=== PATIENT | female | born 1970 | race Caucasian/White ===

== ENCOUNTER 2018-01-10 16:35 | Emergency (ER) | payer OTHER ==
[~2018-01-10] VITALS: Ht 165.1 cm; Wt 57.6 kg
[2018-01-10 16:50] VITALS: BP 119/75
[2018-01-10 17:32] VITALS: BP 119/75
--- NOTE | 2018-01-10 20:03 | Emergency Room Report ---
History of Present Illness General Chief Complaint: General Complaint Source: Patient Present Illness HPI 57-year-old female,begin past history, presenting with accidental ingestion. 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 This occurred more than 4 hours prior to arrival. Denies any symptoms. No headache no blurry vision no feeling of intoxication. No nausea vomiting. No other complaints Allergies: Coded Allergies: No Known Allergies (Unverified , 01/10/18) Patient History Past Medical History: see triage record Past Surgical History: none Pertinent Family History: none Last Menstrual Period: 12/27/17 Reviewed Nursing Documentation: PMH: Agreed; PSxH: Agreed Nursing Documentation-PMH Past Medical History: No Stated History Review of Systems All Other Systems: negative except mentioned in HPI Physical Exam Vital Signs Date Time Temp Pulse Resp B/P (MAP) Pulse Ox O2 Delivery O2 Flow Rate FiO2 01/10/18 16:38 97.3 64 18 119/75 97 Room Air 97.3 Sp02 EP Interpretation: reviewed, normal General Appearance: normal inspection, well appearing, no apparent distress, alert, GCS 15, non-toxic Head: normocephalic, atraumatic Eyes: bilateral eye normal inspection, bilateral eye PERRL, bilateral eye EOMI ENT: normal ENT inspection, normal pharynx, normal voice, moist mucus membranes Neck: normal inspection, full range of motion, supple Respiratory: normal inspection, lungs clear, normal breath sounds, no respiratory distress, no retraction, no wheezing, speaking full sentences, chest symmetrical Cardiovascular #1: normal inspection, regular rate, rhythm, normal capillary refill Cardiovascular #2: 2+ radial (R), 2+ radial (L) Gastrointestinal: normal inspection, non tender, soft, non-distended, no guarding Musculoskeletal: normal inspection, back normal, normal range of motion, non- tender Neurologic: normal inspection, alert, oriented x3, responsive, motor strength/ tone normal, sensory intact, normal gait, speech normal Psychiatric: normal inspection, judgement/insight normal, memory normal Skin: normal inspection, normal color, no rash, warm/dry, well hydrated, normal turgor Medical Decision Making Diagnostic Impression: Primary Impression: Accidental drug ingestion ER Course 57-year-old female with accidental methanol ingestion DDX: Accidental methanol ingestion however very small/negligible amount Plan: None, observe patient ER course: Patient has remained stable during ED stay. Asymptomatic Disposition: Patient is to be discharged to home. Patient is instructed to follow up with their primary care doctor within 5 days. Please note that this Emergency Department Report was dictated using [employer] technology software, occasionally this can lead to erroneous entry secondary to interpretation by the dictation equipment Last Vital Signs Date Time Temp Pulse Resp B/P (MAP) Pulse Ox O2 Delivery O2 Flow Rate FiO2 01/10/18 17:32 97.3 18 119/75 97 Room Air 97.3 01/10/18 16:38 64 Disposition: HOME, SELF-CARE Condition: Stable Scripts No Active Prescriptions or Reported Meds Referrals: NON PHYSICIAN (PCP) Patient Instructions: Nontoxic Ingestion Additional Instructions: PLEASE FOLLOW UP WITH YOUR PRIMARY CARE DOCTOR IN 1 WEEK Ivy Acosta M.D. January 10, 2018 20:03
== END 2018-01-10 17:35 | disposition home or self-care (01) ==
LOC: EMR 17:34
DX: T51.1X1A Toxic effect of methanol, accidental (unintentional), initial encounter (principal); Y92.9 Unspecified place or not applicable
CPT/HCPCS: 99283